=== PATIENT | male | born 1960 | race Asian ===

== ENCOUNTER 2020-06-06 13:28 | Outpatient (REF) | payer MEDICARE, MEDICAID, SELFPAY ==
[2020-06-06 15:19] LABS: Anion Gap 10 (12-20); Blood Urea Nitrogen 15 mg/dL (9-16); Carbon Dioxide 25 mmol/L (22-29); Chloride 107 mmol/L (96-108); Estimated Glomerular Filt Rate 48; Potassium 4.1 mmol/L (3.3-5.1); Sodium 138 mmol/L (135-145)
[2020-06-06 15:20] LABS: Creatinine Urine 102.91 mg/dL; Total Protein Urine Random < 7 mg/dL (<12)
== END 2020-06-06 13:29 | disposition home or self-care (01) ==
LOC: HO.LAB 13:28
PROVIDERS: PCP Internal Medicine; Visit Provider Internal Medicine Hypertension Specialist
DX: N18.30 Chronic kidney disease, stage 3 unspecified (principal)
CPT/HCPCS: 36415; 80051; 82565; 84156; 84520

== ENCOUNTER 2020-12-08 13:31 | Outpatient (REF) | payer MEDICARE, MEDICAID, SELFPAY ==
[2020-12-08 14:24] LABS: Anion Gap 11 (12-20); Blood Urea Nitrogen 13 mg/dL (9-16); Calcium 8.9 mg/dL (8.4-10.2); Carbon Dioxide 25 mmol/L (22-29); Chloride 108 mmol/L (96-108); Estimated Glomerular Filt Rate 42; Potassium 4.4 mmol/L (3.3-5.1); Sodium 140 mmol/L (135-145)
[2020-12-08 14:53] LABS: Creatinine Urine 89.54 mg/dL; Total Protein Urine Random < 7 mg/dL (<12)
== END 2020-12-08 13:32 | disposition home or self-care (01) ==
LOC: HO.LAB 13:31
PROVIDERS: PCP Internal Medicine; Visit Provider Internal Medicine Hypertension Specialist
DX: N18.31 Chronic kidney disease, stage 3a (principal)
CPT/HCPCS: 36415; 80051; 82310; 82565; 84156; 84520

== ENCOUNTER 2021-04-13 13:28 | Outpatient (REF) | payer MEDICARE, MEDICAID, SELFPAY ==
[2021-04-13 14:54] LABS: Anion Gap 10 (12-20); Blood Urea Nitrogen 13 mg/dL (9-16); Calcium 9.2 mg/dL (8.4-10.2); Carbon Dioxide 27 mmol/L (22-29); Chloride 109 mmol/L (96-108); Estimated Glomerular Filt Rate 44; Glucose Random 249 mg/dL (60-115); Potassium 4.6 mmol/L (3.3-5.1); Sodium 141 mmol/L (135-145)
== END 2021-04-13 13:29 | disposition home or self-care (01) ==
LOC: HO.LAB 13:28
PROVIDERS: PCP Internal Medicine; Visit Provider Internal Medicine Hypertension Specialist
DX: N18.31 Chronic kidney disease, stage 3a (principal)
CPT/HCPCS: 36415; 80048

== ENCOUNTER 2022-02-03 13:53 | Outpatient (REF) | payer MEDICARE, MEDICAID, SELFPAY ==
[2022-02-03 15:02] LABS: Hematocrit 40.6 % (42.0-52.0); Mean Corpuscular HGB Conc 34.5 g/dl (31.0-36.0); Mean Corpuscular Hemoglobin 31.3 pg (27.0-33.0); Mean Corpuscular Volume 90.8 fL (80.0-98.0); Mean Platelet Volume 9.7 fL (9.4-12.4); Platelet Count 186 X10*3/uL (160-400); Red Blood Count 4.47 X10*6/uL (4.60-5.80); White Blood Count 4.4 X10*3/uL (4.8-10.8)
[2022-02-03 15:32] LABS: Anion Gap 10 (12-20); Blood Urea Nitrogen 15 mg/dL (9-16); Calcium 8.9 mg/dL (8.4-10.2); Carbon Dioxide 26 mmol/L (22-29); Chloride 108 mmol/L (96-108); Estimated Glomerular Filt Rate 46; Glucose Random 155 mg/dL (60-115); Sodium 140 mmol/L (135-145)
[2022-02-03 16:42] LABS: Creatinine Urine 62.19 mg/dL; Total Protein Urine Random < 7 mg/dL (<12)
== END 2022-02-03 13:54 | disposition home or self-care (01) ==
LOC: HO.LAB 13:53
PROVIDERS: Visit Provider Internal Medicine Hypertension Specialist
DX: N18.30 Chronic kidney disease, stage 3 unspecified (principal)
CPT/HCPCS: 36415; 80048; 84156; 85027

== ENCOUNTER 2022-11-26 13:17 | Outpatient (REF) | payer MEDICARE, MEDICAID, SELFPAY ==
[2022-11-26 14:33] LABS: Alanine Aminotransferase 22 U/L (0-40); Albumin Level 4.2 g/dL (3.5-5.0); Alkaline Phosphatase 65 U/L (39-117); Anion Gap 14 (12-20); Aspartate Amino Transferase 19 U/L (5-37); Bilirubin Total 0.4 mg/dL (0.0-1.0); Blood Urea Nitrogen 14 mg/dL (9-16); Calcium 9.2 mg/dL (8.4-10.2); Carbon Dioxide 24 mmol/L (22-29); Chloride 111 mmol/L (96-108); Estimated Glomerular Filt Rate 45; Sodium 145 mmol/L (135-145); Total Protein 7.6 g/dL (6.5-8.0)
[2022-11-26 14:45] LABS: Glucose Random 43 mg/dL (60-115)
== END 2022-11-26 13:18 | disposition home or self-care (01) ==
LOC: HO.LAB 13:17
PROVIDERS: PCP Internal Medicine; Visit Provider Internal Medicine Hypertension Specialist
DX: N18.31 Chronic kidney disease, stage 3a (principal)
CPT/HCPCS: 36415; 80053

== ENCOUNTER 2023-09-02 13:49 | Outpatient (REF) | payer MEDICARE, MEDICAID, SELFPAY ==
[2023-09-02 14:06] LABS: MANUAL DIFF FLAG NO
[2023-09-02 14:39] LABS: Basophils Percent Auto 0.5 % (0-2); Eosinophils Absolute Auto 0.1 X10*3/uL (0.0-0.4); Eosinophils Percent Auto 1.1 % (0-4); Hemoglobin 13.6 g/dl (14.0-18.0); Imm Gran Abs Auto 0.02 X10*3/uL (0.00-0.03); Imm Gran Pct Auto 0.3 % (0.0-0.4); Lymphocytes Absolute Auto 3.3 X10*3/uL (1.2-4.9); Lymphocytes Percent Auto 53.3 % (20-40); Mean Corpuscular Hemoglobin 30.9 pg (27.0-33.0); Mean Corpuscular Volume 90.9 fL (80.0-98.0); Mean Platelet Volume 9.7 fL (9.4-12.4); Monocytes Absolute Auto 0.4 X10*3/uL (0.1-1.2); Monocytes Percent Auto 6.5 % (2-11); Neutrophils Absolute Auto 2.3 x10*3/uL (2.0-8.3); Neutrophils Percent Auto 38.3 % (45-73); Platelet Count 184 X10*3/uL (160-400); Red Cell Distribution Width 14.9 % (11.0-16.0); White Blood Count 6.1 X10*3/uL (4.8-10.8)
[2023-09-02 15:02] LABS: Albumin Level 4.1 g/dL (3.5-5.0); Anion Gap 10 (12-20); Blood Urea Nitrogen 12 mg/dL (9-16); Calcium 9.3 mg/dL (8.4-10.2); Carbon Dioxide 25 mmol/L (22-29); Chloride 112 mmol/L (96-108); Estimated Glomerular Filt Rate 43; Magnesium 2.4 mg/dL (1.6-2.6); Phosphorus 3.3 mg/dL (2.7-4.5); Potassium 3.8 mmol/L (3.3-5.1); Sodium 143 mmol/L (135-145)
[2023-09-02 15:03] LABS: Parathyroid Hormone Intact 61.4 pg/mL (8.7-77.1)
[2023-09-02 15:18] LABS: Vitamin D 25-OH Total 26.6 ng/mL (>30)
[2023-09-02 17:33] LABS: Appearance Urine Clear; Color Urine Yellow; Glucose Urine UA Negative (Negative); Leukocyte Esterase Urine Negative (Negative); Nitrite Urine Negative (Negative); Specific Gravity - Urine <= 1.005 (1.005-1.025); Urine Blood Negative (Negative); Urine Ketones Negative (Negative); Urine Protein Negative (Neg-Trace)
[2023-09-02 18:11] LABS: Creatinine Urine 51.73 mg/dL; Microalbumin Urine < 5.0 mg/L; Total Protein Urine Random < 7 mg/dL (<12)
== END 2023-09-02 13:50 | disposition home or self-care (01) ==
LOC: HO.LAB 13:49
PROVIDERS: Visit Provider Internal Medicine Nephrology
DX: E10.22 Type 1 diabetes mellitus with diabetic chronic kidney disease (principal); N18.32 Chronic kidney disease, stage 3b; N25.0 Renal osteodystrophy
CPT/HCPCS: 36415; 80051; 81003; 82040; 82306; 82310; 82565; 82570; 83735; 83970; 84100; 84156; 84520; 85025

== ENCOUNTER 2024-11-01 15:17 | Outpatient (REF) | payer MEDICARE, MEDICAID, SELFPAY ==
--- OUTSIDE RECORDS SUMMARY | 2024-10-31 07:10 | XMS_ITS | Encounter Summary ---
Author Organization [facility] Address [address] [facility] [address] [place] [phone] Phone Care Team Providers Care Inspection And Testing Supervisor Name Role Phone Millie Kan MD Primary Care Provider + Encounter Details Date Type Department Care Team (Latest Contact Info) Description 10/31/2024 7:10 AM EDT - 10/31/2024 11:59 PM EDT Hospital Encounter [facility] Specimen Processing [address] [place] [address] Pao Kan MD [address] [place] [address] Discharge Disposition: Home or Self Care Social History Tobacco Use Types Packs/Day Years Used Date Smoking Tobacco: Never Assessed Education Answer Date Recorded Are you interested in more education? Not on donna e 06/25/2022 Are you concerned about learning? Not on file 06/25/2022 No 06/25/2022 No 06/25/2022 Digital Access Answer Date Recorded No 07/21/2022 No 07/21/2022 No 07/21/2022 Reliable internet access at home? Not on file 07/21/2022 Device with a working camera? Not on file Sex and Gender Information Value Date Recorded Sex Assigned at Not on file Legal Sex Male 9:45 PM EDT Gender Identity Not on file Sexual Orientation Not on file documented as of this encounter Plan of Treatment Not on file documented as of this encounter Procedures Procedure Name Priority Date/Time Associated Diagnosis Comments PT-INR Routine 10/31/2024 7:12 AM EDT Atrial fib/flutter, transient documented in this encounter Results * (ABNORMAL) PT-INR (10/31/2024 7:12 AM EDT) PT 29.4(H) 10.2 - 12.9 sec [facility] INR 2.4(H) 0.9 - 1.1 [facility] Comment:Therapeutic range fo r oral Vitamin K antagonists: 2.0-3.5 10/31/2024 7:12 AM EDT 10/31/2024 8:28 AM EDT us Pao Bennie Kan MD LAB BLOOD ORDERABLES Fi nal Result [facility] [address] [place] [address] documented in this encounter Visit Diagnoses Diagnosis Atrial fib/flutter, transient documented in this encounter Care Teams Inspection And Testing Supervisor Relationship Specialty Start Date End Date Millie Kan MD [address] [place] [address] PCP - General Internal Medicine 08/13/20 documented as of this encounter Additional Source Comments The information contained in this document represents components of the legal health record. It is not the complete legal health record.[facility]
--- OUTSIDE RECORDS SUMMARY | 2024-11-01 14:45 | XMS_ITS | Encounter Summary ---
Author Organization [facility] Address [address] [facility] [address] [place] [address] Phone Care Team Providers Care Hydro Generation Supervisor Name Role Phone Millie Kan MD Primary Care Provider [phone] Encounter Details Date Type Department Care Team (Latest Contact Info) Description 11/01/2024 2:45 PM EDT [facility] [address] [place] [address] Nathaniel Crooks MD [address] [facility] [address] [place] [address] Stage 3b chronic kidney disease (HCC) (Primary Dx); Renal osteodystrophy Social History Tobacco Use Types Packs/Day Years Used Date Smoking Tobacco: Never Smokeless Tobacco: Never Alcohol Use Standard Drinks/Week Comments Yes 0 (1 standard drink = 0.6 oz pure alcohol) Alcoholic Drinks/day: Occasional social drink Sex and Gender Information Value Date Recorded Sex Assigned at Not on file Legal Sex Male 4:48 PM EST Gender Identity Not on file Sexual Orientation Not on file documented as of this encounter Last Filed Vital Signs Vital Sign Reading Time Taken Comments Blood Pressure 100/62 11/01/2024 2:45 PM EDT Pulse 57 11/01/2024 2:45 PM EDT Temperature - - Respiratory Rate - - Oxygen Saturation 97% 11/01/2024 2:45 PM EDT Inhaled Oxygen Concentration - - Weight 79.2 kg (174 lb 9.6 oz) 11/01/2024 2:45 P M EDT Height - - Body Mass Index 26.16 12/15/2020 2:55 PM EDT documented in this encounter Patient Instructions * Patient Instructions* Nathaniel Crooks MD - 11/01/2024 2:45 PM EDT No NSAIDS - Do not take non-steroidal anti-inflammatory medications (NSAIDS) such as Ibuprofen (Advil, Motrin, etc), Naproxen (Aleve, etc), Celecoxib (Celebrex) or Ketoprofen. These common arthritis medications can cause permanent kidney damage or worsen your kidney damage. For mild occasional pain, Acetaminophen (Tylenol, etc) is safe for your kidneys. Sodium and Your CKD Diet: How to Spice Up Your Cooking What is sodium? Sodium is a mineral found naturally in foods and is the major part of table salt. What are the effects of eating too much sodium? When your kidneys are not healthy, extra sodium and fluid build up in your body. This can cause swollen ankles, puffiness, a rise in blood pressure, shortness of breath, and/or fluid around your heart and lungs. See the following table for suggestions on how to reduce sodium in your diet. LIMIT THE [AMOUNT OF... FOOD TO LIMIT BECAUSE OF THEIR HIGH SODIUM CONTENT ACCEPTABLE SUBSTITUTES SALT & SALT SEASONINGS Table salt Seasoning salt Garlic salt Onion salt Celery salt Lemon pepper Lite salt Meat tenderizer Bouillon cubes Flavor enhancers Fresh garlic, fresh onion, garlic powder, onion powder, black [pepper, lemon juice, low-sodium/salt-free seasoning blends, vinegar SALTY FOODS Barbecue sauce Steak sauce Soy sauce Teriaky sauce Oyster sauce Salted Snacks such as Crackers Potato chips [place] chips Pretzels Tortilla chips Nuts Popcorn Screven seeds Homemade or low- sodium sauces and salad dressings; Vinegar, dry mustard, unsalted popcorn, pretzels, tortilla or corn chips Cured Foods Ham Salt pork Dey Sauerkraut Pickles, pickle relish Lox & Bhagat Olives Fresh beef, veal, pork, poultry, fish, eggs [place] [employer] Hot Dogs Cold cuts, deli meats Pastrami Sausage Corned beef Spam Low-salt deli meats PROCESSED FOODS Buttermilk Cheese Canned: Soups Tomato products Vegetable juices Canned vegetables Convenience Foods such as: TV Dinners Canned raviolis [place] Macaroni & Cheese Spaghetti Frozen prepared foods Fast foods Natural cheese (1-2 oz Per week) Homemade or jose alfredo,1- sodium soups, canned food without added salt Homemade casseroles without added salt, made with fresh or raw vegetables, fresh meat, antonia, pasta, or unsalted canned vegetables Some salt or sodium is needed for body water balance. But when your kidneys lose the ability to control sodium and water balance, you may experience the following: thirst fluid gain high blood pressure discomfort during dialysis By using less sodium in your diet, you can control these problems. Hints to keep your sodium intake down Cook with herbs and spices instead of salt. (Refer to Spice Up Your Cooking section for further suggestions.) Read food labels and choose those foods low in sodium. Avoid salt substitutes and specialty low-sodium foods made with salt substitutes because they are high in potassium. When eating out, ask for meat or fish without salt. Ask for gravy or sauce on the side; these may contain large amounts of salt and should be used in small amounts . Limit use of canned, processed and frozen foods. Some information about reading labels Understanding the terms: Sodium Free - Only a trivial amount of sodium per serving. Very Low Sodium - 35 mg or less per serving. Low Sodium - 140 mg or less per serving. Reduced Sodium - Foods in which the level of sodium is reduced by 25%. Light or Lite in Sodium - Foods in which the sodium is reduced by at least 50% . Simple rule of thumb : If salt is listed in the first five ingredients, the item is probably too high in sodium to use. All food labels now have milligrams (mg) of sodium listed. Follow these steps when reading the sodiwn information on the label: 1. Know how much sodium you are allowed each day. Remember that there are 1000 milligrams (mg) in 1gram. For [id number], if your diet prescription is 2 grams of sodium , your limit is 2000 milligrams per day. Consider the sodium value or other food to be eaten during the day. 2. Look at the package label. Check the serving size. Nutrition values are expressed per deisy g. How does this compare to your total daily allowance? If the sodium level is 500 mg or more per serving, the item is not a good choice. 3. Compare labels of similar products. Select the lowest sodium level for the same serving size. How to Spice Up Your Cooking Giving up salt does not mean giving up flavor. Learn to season your food with herbs and spices. Be creative and experiment for a new and exciting flavor. What kinds of spices and herbs should I use instead of salt to add flavor? Try the following spices with the foods listed. Allspice: Use with beef, fish, beets, cabbage, canots, peas, fruit. Basil: Use with beef, pork, most vegetables. [place]: Use with beef, pork, most vegetables. [place]: Use with beef, pork, green beans, cauliflower, cabbage, beets, asparagus, and in dips and marinades. Cardamom: Use with fruit and in baked goods. [place]: Use with beef, chicken, pork, fish, green beans, carrots and in marinades. Dill: Use with beef, chicken, green beans, cabbage, carrots, peas and in dips. [place]: Use with beef, chicken, pork, green beans, cauliflower and eggplant. Marjoram: Use with beef, chicken, pork, green beans, cauliflower and eggplant. [place]: Use with chicken, pork, cauliflower, peas and in marinades. Thyme: Use with beef, chicken, pork, fish, green beans, beets and carrots. [place]: Use with chicken, pork, eggplant and in dressing. Tarragon: Use with fish, chicken, asparagus, beets, cabbage, cauliflower and in marinades. Tips for cooking with herbs and spices Purchase spices and herbs in small amounts . When they sit on the shelf for years they lose their flavor. Use no more than ?? teaspoon of dried spice (?? of fresh) per pound of meat. Add ground spices to food about 15 minutes before the end of the cooking period. Add whole spices to food at least one hour before the end of the cooking period. Combine herbs with oil or butter, set for 30 minutes to bring out their flavor, then brush on foodswhile they cook, or brush meat with oil and sprinkle herbs one hour before coolcing. Crush dried herbs before adding to foods. Can I use salt substitutes? Caution! If you are told to limit potassium in your diet, be very cautious about using salt substitutes because most of them contain some form of potassium. Check with your doctor or dietitian beforeusing and salt substitute. [place] and create your own seasoning containing those spices that you like. If you would like to become a volunteer and find out more about what's happening where you live, contact your local [facility] Affiliate. Blood pressure monitoring education: Monitor home blood pressure values after sitting for 5 minutes with back and arm support. Keep a log. Bring your log and blood pressure cuff to your next visit. documented in this encounter Plan of Treatment Upcoming Encounters Date Type Department Care Team (Late st Contact Info) Description 08/01/2025 2:30 PM EDT Office Visit [facility] [address] [place] [address] Nathaniel Crooks MD [address] [facility] [address] [place] [address] Scheduled Orders Name Type Priority Associated Diagnoses Orde r Schedule PTH, Intact Lab Routine Stage 3b chronic kidney disease (HCC) Renal osteodystrophy Expected: 11/01/2024, Expires: 12/01/2025 Renal Function Panel Lab Routine Stage 3b chronic kidney disease (HCC) Renal osteodystrophy Expected: 11/01/2024, Expires: 12/01/2025 Urinalysis with microscopic Lab Routine Stage 3b chronic kidney disease (HCC) Renal osteodystrophy Expected: 11/01/2024, Expires: 12/01/2025 Urine Albumin / Creatinine Ratio Lab Routine Stage 3b chronic kidney disease (HCC) Renal osteodystrophy Expected: 11/01/2024, Expires: 12/01/2025 Protein, Total, Random Urine w/Creatinine (Protein/Creat Ratio) Lab Routine Stage 3b chronic kidney disease (HCC) Renal osteodystrophy Expected: 11/01/2024, Expires: 12/01/2025 Vitamin D 25 Hydroxy Lab Routine Stage 3b chronic kidney disease (HCC) Renal osteodystrophy Expected: 11/01/2024, Expires: 12/01/2025 CBC Lab Routine Stage 3b chronic kidney disease (HCC) Renal osteodystrophy Expected: 11/01/2024, Expires: 12/01/2025 Phosphorus Lab Routine Stage 3b chronic kidney disease (HCC) Renal osteodystrophy Expected: 11/01/2024, Expires: 12/01/2025 Magnesium Lab Routine Stage 3b chronic kidney disease (HCC) Renal osteodystrophy Expected: 11/01/2024, Expires: 12/01/2025 Albumin Lab Routine Stage 3b chronic kidney disease (HCC) Renal osteodystrophy Expected: 11/01/2024, Expires: 12/01/2025 Calcium Lab Routine Stage 3b chronic kidney disease (HCC) Renal osteodystrophy Expected: 11/01/2024, Expires: 12/01/2025 documented as of this encounter Visit Diagnoses Diagnosis Stage 3b chronic kidney disease (HCC)- Primary Renal osteodystrophy documented in this encounter Care Teams Hydro Generation Supervisor Relationship Specialty Start Date End Date Millie Kan MD [facility] [place], [place] PCP - General 03/10/20 documented as of this encounter
[2024-11-01 15:40] LABS: MANUAL DIFF FLAG NO
[2024-11-01 16:18] LABS: Hematocrit 37.3 % (42.0-52.0); Hemoglobin 12.7 g/dl (14.0-18.0); Imm Gran Abs Auto 0.01 X10*3/uL (0.00-0.03); Imm Gran Pct Auto 0.2 % (0.0-0.4); Lymphocytes Absolute Auto 2.6 X10*3/uL (1.2-4.9); Mean Corpuscular HGB Conc 34.0 g/dl (31.0-36.0); Mean Corpuscular Hemoglobin 30.2 pg (27.0-33.0); Mean Corpuscular Volume 88.6 fL (80.0-98.0); NRBC Abs Auto 0.000 X10*3/uL (0.0-0.012); NRBC Pct Auto 0.0 /100WBC (0.0-0.2); Platelet Count 202 X10*3/uL (160-400); Red Blood Count 4.21 X10*6/uL (4.60-5.80); White Blood Count 5.2 X10*3/uL (4.8-10.8)
--- OUTSIDE RECORDS SUMMARY | 2024-11-01 16:19 | XMS_ITS | Encounter Summary ---
Author Organization [facility] Address [address] [place] [address] [place] [phone] Phone Care Team Providers Care Printing Equipment Mechanic Apprentice Name Role Phone Millie Kan MD Primary Care Provider + Encounter Details Date Type Department Care Team (Late st Contact Info) Description 06/09/2022 Transcribe Orders [facility] Specimen Processing [address] [place] [phone] Millie Kan MD [address] [place] [address] Atrial fibrillation, unspecified type (Primary Dx) Social History Tobacco Use Types Packs/Day Years Used Date Smoking Tobacco: Never Assessed Sex and Gender Information Value Date Recorded Sex Assigned at Not on file Legal Sex Male 9:45 PM EDT Gender Identity Not on file Sexual Orientation Not on file documented as of this encounter Plan of Treatment Not on file documented as of this encounter Results * (ABNORMAL) PT-INR (06/16/2022 6:10 AM EDT) PT 45.3(H) 10.2 - 12.9 sec [facility] INR 4.0(H) 0.9 - 1.1 [facility] Comment:Therapeutic range fo r oral Vitamin K antagonists: 2.0-3.5 Blood 06/16/2022 6:10 AM EDT 06/16/2022 9:21 AM EDT us Millie Kan MD LAB BLOOD ORDERABLES Fin al Result [facility] [address] [place] [address] documented in this encounter Visit Diagnoses Diagnosis Atrial fibrillation, unspecified type- Primary documented in this encounter Care Teams Printing Equipment Mechanic Apprentice Relationship Specialty Start Date End Date Millie Kan MD [address] [place] [phone] PCP - General Internal Medicine 08/13/20 documented as of this encounter Additional Source Comments The information contained in this document represents components of the legal health record. It is not the complete legal health record.[facility]
--- OUTSIDE RECORDS SUMMARY | 2024-11-01 16:19 | XMS_ITS | Clinical Summary ---
Author Organization [facility] Address [address] [place] [address] Phone Care Team Providers Care Tool Planner Name Role Phone Millie Kan MD Primary Care Provider + Encounters Date Type Department Care Team Description 10/31/2024 7:10 AM EDT - 10/31/2024 11:59 PM EDT Hospital Encounter [facility] [address] [place] [address] Pao Kan MD Discharge Disposition: Home or Self Care 10/31/2024 Transcribe Orders [facility] [address] [place] [address] Pao aKn MD 10/31/2024 Transcribe Orders [facility] [address] [place] [address] Pao Kan MD Atrial fib/flutter, transient (Primary Dx) 10/24/2024 7:51 AM EDT - 10/24/2024 11:59 PM EDT Hospital Encounter [facility] [address] [place] [address] Pao Kan MD Discharge Disposition: Home or Self Care 10/24/2024 Transcribe Orders [facility] [address] [place] [address] Pao Kan MD Atrial fib/flutter, transient (Primary Dx) 10/16/2024 8:13 AM EDT - 10/16/2024 11:59 PM EDT Hospital Encounter [facility] [address] [place] [address] Millie Kan MD Discharge Disposition: Home or Self Care 10/16/2024 Transcribe Orders [facility] [address] [place] [address] Millie Kan MD detention (current) use of anticoagulants (Primary Dx) 10/10/2024 7:32 AM EDT - 10/10/2024 11:59 PM EDT Hospital Encounter [facility] [address] [place] [address] Pao Kan MD Discharge Disposition: Home or Self Care 10/10/2024 Transcribe Orders [facility] [address] [place] [address] Pao Kan MD Atrial fib/flutter, transient (Primary Dx) 10/03/2024 6:22 AM EDT - 10/03/2024 11:59 PM EDT Hospital Encounter [facility] [address] [place] [address] Pao Kan MD Discharge Disposition: Home or Self Care 10/03/2024 Transcribe Orders [facility] [address] [place] [address] Pao Kan MD Atrial fibrillation, unspecified type (Primary Dx) 09/26/2024 6:34 AM EDT - 09/26/2024 11:59 PM EDT Hospital Encounter [facility] [address] [place] [address] Pao Kan MD Discharge Disposition: Home or Self Care 09/26/2024 Transcribe Orders [facility] [address] [place] [address] Pao Kan MD Atrial fibrillation, unspecified type (Primary Dx) 09/26/2024 Transcribe Orders [facility] Specimen Processing [address] [place] [address] Pao Kan MD Atrial fibrillation, unspecified type (Primary Dx) 09/19/2024 7:04 AM EDT - 09/19/2024 11:59 PM EDT Hospital Encounter [facility] [address] [place] [address] Pao Kan MD Discharge Disposition: Home or Self Care 09/19/2024 Transcribe Orders [facility] Specimen Processing [address] [place] [address] Pao Kan MD detention (current) use of anticoagulants (Primary Dx) 09/12/2024 6:11 AM EDT - 09/12/2024 11:59 PM EDT Hospital Encounter [facility] [address] [place] [address] Pao Kan MD Discharge Disposition: Home or Self Care 09/12/2024 Transcribe Orders [facility] Specimen Processing [address] [place] [address] Pao Kan MD joint terminal attack controller (current) use of anticoagulants (Primary Dx) 09/05/2024 7:22 AM EDT - 09/05/2024 11:59 PM EDT Hospital Encounter [facility] [address] [place] [address] Pao Kan MD Discharge Disposition: Home or Self Care 09/05/2024 Transcribe Orders [facility] Specimen Processing [address] [place] [address] Pao Kan MD Atrial fib/flutter, transient (Primary Dx) 08/29/2024 6:30 AM EDT - 08/29/2024 11:59 PM EDT Hospital Encounter [facility] [address] [place] [address] Pao Kan MD Discharge Disposition: Home or Self Care 08/29/2024 Transcribe Orders [facility] [address] [place] [address] Pao Kan MD detention (current) use of anticoagulants (Primary Dx) 08/22/2024 7:43 AM EDT - 08/22/2024 11:59 PM EDT Hospital Encounter [facility] [address] [place] [address] Pao Kan MD Discharge Disposition: Home or Self Care 08/22/2024 Transcribe Orders [facility] Specimen Processing [address] [place] [address] Pao Kan MD joint terminal attack controller (current) use of anticoagulants (Primary Dx) 08/15/2024 9:00 AM EDT - 08/15/2024 11:59 PM EDT Hospital Encounter [facility] [address] [place] [address] Brad Saleh MD Bucknor, Adjoa Agyiewa, MD Discharge Disposition: Home or Self Care 08/15/2024 Transcribe Orders [facility] Specimen Processing [address] [place] [address] Pao Kan MD Atrial fib/flutter, transient (Primary Dx) 08/08/2024 8:07 AM EDT - 08/08/2024 11:59 PM EDT Hospital Encounter [facility] [address] [place] [address] Pao Kan MD Discharge Disposition: Home or Self Care 08/08/2024 Transcribe Orders [facility] Specimen Processing [address] [place] [address] Pao Kan MD Atrial fibrillation, unspecified type (Primary Dx) 08/01/2024 11:59 AM EDT - 08/01/2024 11:59 PM EDT Hospital Encounter [facility] Specimen Processing [address] [place] [address] Pao Kan MD Discharge Disposition: Home or Self Care 08/01/2024 Transcribe Orders [facility] Specimen Processing [address] [place] [address] Pao Kan MD Atrial fib/flutter, transient (Primary Dx) from Last 3 Months Social History Tobacco Use Types Packs/Day Years [...] on file Sexual Orientation Not on file Plan of Treatment Health Maintenance Due Date Last Done Comments Adult Td,Tdap Booster 1962 DEPRESSION SCREENING 1974 SMOKING Hx and SMOKELESS TOBACCO SCREENING 1975 HEPATITIS C SCREENING 1980 HIV ONE-TIME SCREENING (18-6 5 YEARS) 1980 COLOGUARD 2007 COLONOSCOPY 2007 COLORECTAL CANCER SCREENING 2007 FIT TEST 2007 FOBT 2007 SIGMOIDOSCOPY 2007 VIRTUAL COLONOSCOPY 2007 PNEUMOCOCCAL VACCINES (50+ years) (1 of 1 - PCV) 2012 ZOSTER VACCINES (1 of 2) 2012 INFLUENZA VACCINE (#1) 2024 12/07/2019 COVID-19 VACCINE (3 - 2024-2 6 season) 2024 04/11/2020, 03/21/2020 LIPID PANEL 12/23/2027 12/22/2022, 05/07/2020 RSV VACCINE (1 - 1-dose 75+ series) 2037 HEPATITIS A VACCINES Aged Out No long er eligible based on patient's age to complete this topic HIB VACCINES Aged Out No longer eligi ble based on patient's age to complete this topic MENINGOCOCCAL VACCINES (ACWY) Aged Out No longer eligible based on patient's age to complete this topic MENINGOCOCCAL VACCINES (B) Aged Out N o longer eligible based on patient's age to complete this topic Medical Devices Not on file Procedures Procedure Name Priority Date/Time Associated Diagnosis Comments PT-INR Routine 10/31/2024 7:12 AM EDT Atrial fib/flutter, transient PT-INR Routine 10/24/2024 7:52 AM EDT Atrial fib/flutter, transient PT-INR Routine 10/16/2024 6:50 AM EDT detention (current) use of anticoagulants PT-INR Routine 10/10/2024 6:44 AM EDT Atrial fib/flutter, transient PT-INR Routine 10/03/2024 6:15 AM EDT Atrial fibrillation, unspecified type PT-INR Routine 09/26/2024 6:15 AM EDT Atrial fibrillation, unspecified type PT-INR Routine 09/19/2024 6:00 AM EDT joint terminal attack controller (current) use of anticoagulants PT-INR Routine 09/12/2024 6:00 AM EDT detention (current) use of anticoagulants PT-INR Routine 09/05/2024 7:04 AM EDT Atrial fib/flutter, transient PT-INR Routine 08/29/2024 6:25 AM EDT joint terminal attack controller (current) use of anticoagulants PT-INR Routine 08/22/2024 7:10 AM EDT joint terminal attack controller (current) use of anticoagulants PT-INR Routine 08/15/2024 8:18 AM EDT Atrial fib/flutter, transient PT-INR Routine 08/08/2024 7:00 AM EDT Atrial fibrillation, unspecified type PT-INR Routine 08/01/2024 11:13 AM EDT Atrial fib/flutter, transient LIPID PANEL Routine 12/22/2022 8:41 AM EDT Atrial fibrillation, unspecified type detention (current) use of anticoagulants Diabetes mellitus without complication from Last 3 Months or Most Recently Relevant to Health Maintenance Results * (ABNORMAL) PT-INR (10/31/2024 7:12 AM EDT) Only the most recent of14 resultswithin the time period is included. PT 29.4(H) 10.2 - 12.9 sec [facility] INR 2.4(H) 0.9 - 1.1 [facility] Comment:Therapeutic range fo r oral Vitamin K antagonists: 2.0-3.5 10/31/2024 7:12 AM EDT 10/31/2024 8:28 AM EDT us Pao Kan MD LAB BLOOD ORDERABLES Fi nal Result Performing Organization Address [facility] Co de Phone Number [address] [address] * (ABNORMAL) Lipid panel (12/22/2022 8:41 AM EDT) HDL 33 mg/dL [facility] Comment: Interpretation <40 mg/dL: Low HDL cholesterol (major risk factor for CHD) Greater than or equal to 60 mg/dL: High HDL cholesterol ( negative risk factor for CHD) HDL - cholesterol is affected by a number of factors, e.g. smoking, excerise, hormones, sex and age. CHOLESTEROL 90 0 - 240 mg/dL [facility] TRIGLYCERIDES 98 30 - 160 mg/dL [facility] LDL 37(L) 50 - 129 mg/dL [facility] Comment: LDL levels in terms of risk for coronary heart disease: <100 mg/dL: Optimal 100-129 mg/dL: Near or above optimal 130-159 mg/dL: Borderline high 160-189 mg/dL: High >190 mg/dL: Very High CARDIAC RISK RATIO 2.7(L) 3.4 - 5.0 C [facility] Blood 12/22/2022 8:41 AM EDT 12/22/2022 10:16 AM EDT us Millie Kan MD LAB BLOOD ORDERABLES Fin al Result Performing Organization Address City/[facility]/ZIP Co de Phone Number [address] [address] from Last 3 Months or Most Recently Relevant to Health Maintenance Insurance [address] [place] [address] MEDICARE PART A & B [address] [place], [place] [address]HEALTH [address] [place] [address] MEDICARE PART A & [facility] [address] [place] [address] MEDICARE PART A & B [facility] [address] [place] [address] MEDICARE PART [place] & [place] [address] [place] [address] MEDICARE PART A & B [facility] [address] [place] [address] MEDICARE PART A & B HEALTH [address] [place] [address] MEDICARE PART A & B [facility]ALTH [address] [place] [address] MEDICARE PART A & [place] [address] [place] [address] MEDICARE PART A & B [place] Care Teams Tool Planner Relationship Specialty Start Date End Date Millie Kan MD [address] [place] [address] PCP - General Internal Medicine 08/13/20 Additional Source Comments The information contained in this document represents components of the legal health record. It is not the complete legal health record.[facility]
--- OUTSIDE RECORDS SUMMARY | 2024-11-01 16:19 | XMS_ITS | Clinical Summary ---
Author Organization [facility] Address [address] [place] [address] Phone Care Team Providers Care Bakery Decorator Name Role Phone Millie aKn MD Primary Care Provider [phone] Allergies No known active allergies Medications cholecalciferol (VITAMIN D-3) 25 MCG (1000 UT) capsule Take 1 capsule by mouth 1 (one) time each day Active NovoLOG FLEXPEN 100 UNIT/ML injection 1 Active Tresiba FlexTouch 200 UNIT/ML injection 1 Active insulin glargine (Lantus) 100 UNIT/ML injection Inject 70 Units under the skin 1 (one) time each day Active Latuda 120 MG tablet 1 Active omeprazole (PriLOSEC) [address] capsule 1 Active perphenazine 16 MG tablet 1 Active rosuvastatin (CRESTOR) 5 MG tablet 1 Active topiramate (TOPAMAX) 50 MG tablet 1 Active warfarin (COUMADIN) 7.5 MG tablet 1 Active benztropine (COGENTIN) 0.5 MG tablet Take 0.5 mg by mouth 1 (one) time each day 2 Active cetirizine (ZyrTEC) 10 MG chewable tablet Chew 10 mg 1 (one) time each day Active Lurasidone HCl 120 MG tablet Take by mouth Ac tive VITAMIN D PO Take 1,000 Units by mouth Active acetaminophen (TYLENOL) 325 MG tablet Take by mouth every 6 (six) hours if needed for mild pain Active dexAMETHasone (DEXTENZA OP) Administer 30 mg into affected eye(s) Active ibuprofen (ADVIL,MOTRIN) 800 MG tablet Take 800 mg by mouth every 6 (six) hours if needed for mild pain Active Magnesium 400 MG tablet Take by mouth Active Active Problems Problem Noted Date Diagnosed Date Schizophrenia 12/02/2022 12/02/2022 Allergic rhinitis 12/02/2022 12/02/2022 Stage 3b chronic kidney disease 12/02/2022 Type 1 diabetes mellitus wit h diabetic chronic kidney disease 12/02/2022 Renal osteodystrophy 12/02/2022 Anxiety 12/12/2020 Chronic kidney disease stage 3 12/12/2020 Deep venous thrombosis 12/12/2020 Depressive disorder 12/12/2020 Diabetes mellitus 12/12/2020 Hyperlipidemia 12/12/2020 Encounters Date Type Department Care Team Description 11/01/2024 2:45 PM EDT Office Visit [facility] [address] [place], [place] [address] Nathaniel Crooks MD Stage 3b chronic kidney disease (HCC) (Primary Dx); Renal osteodystrophy from Last 3 Months Immunizations Immunization Administration Dates Next Due Influenza, Unspecified 12/17/2020,2019,11/08/2018,01/26/2018,11/29,12/24/2015 Pfizer SARS-COV-2 07/06/2021,12/26/2020,04/11/19 21,03/21/2020 Pneumococcal Polysaccharide 01/18/2013 SARS-CoV-2, Unspecified 12/29/2021 Td, Unspecified 09/22/2015 Family History Relation Status Comments Father Unknown Mother Unknown Social History Tobacco Use Types Packs/Day Years [...] on file Sexual Orientation Not on file Last Filed Vital Signs Vital Sign Reading Time Taken Comments Blood Pressure 100/62 11/01/2024 2:45 PM EDT Pulse 57 11/01/2024 2:45 PM EDT Temperature - - Respiratory Rate - - Oxygen Saturation 97% 11/01/2024 2:45 PM EDT Inhaled Oxygen Concentration - - Weight 79.2 kg (174 lb 9.6 oz) 11/01/2024 2:45 P M EDT Height 174 cm (5' 8.5 ) 12/15/2020 2:55 PM EDT Body Mass Index 26.16 12/15/2020 2:55 PM EDT Plan of Treatment Upcoming Encounters Date Type Department Care Team (Late st Contact Info) Description 08/01/2025 2:30 PM EDT Office Visit [facility] [address] [place] [address] Nathaniel Crooks MD [address] [facility] [address] [place] [address] Health Maintenance Due Date Last Done Comments Colorectal Cancer Screening: Annual FOBT 2011 Colorectal Cancer Screening: Colonoscopy 2011 Colorectal Cancer Screening: Sigmoidoscopy 2011 Pneumococcal Vaccine: 50+ Years (2 of 2 - PCV) 01/18/2014 01/18/2013 Diabetes: Hemoglobin A1C 03/31/2020 Diabetes: Ophthalmology Exam 03/31/2020 Diabetes: Pedal Pulse Checked 03/31/2020 Diabetes: Sensory Foot Exam 03/31/2020 Diabetes: Visual Foot Exam 03/31/2020 Influenza Vaccine (#1) 2024 , 12/07/2019, 11/08/2018, Additional history exists Pneumococcal Vaccine: Peds (0 to 5 Years) and At-Risk Patients (6 to 49 Years) Discontinued 01/18/2013 Hepatitis B Vaccine Aged Out No longe r eligible based on patient's age to complete this topic Insurance Medicare Medicaid [place] Medicaid [place] Care Teams Bakery Decorator Relationship Specialty Start Date End Date Millie Kan MD [address] [place], [place] PCP - General 03/10/20
--- OUTSIDE RECORDS SUMMARY | 2024-11-01 16:19 | XMS_ITS | Encounter Summary ---
Author Organization [facility] Address [address] [place] [address] [place] [phone] Phone Care Team Providers Care Ceo And Founder Name Role Phone Millie Kan MD Primary Care Provider + Encounter Details Date Type Department Care Team (Late st Contact Info) Description 05/26/2023 Transcribe Orders [facility] Processing [address] [place] [address] Millie Kan MD [address] [place], [place] [phone] Social History Tobacco Use Types Packs/Day Years [...] on file documented as of this encounter Visit Diagnoses Not on filedocumented in this encounter Care Teams Ceo And Founder Relationship Specialty Start Date End Date Millie Kan MD [address] [place] [address] PCP - General Internal Medicine 08/13/20 documented as of this encounter Additional Source Comments The information contained in this document represents components of the legal health record. It is not the complete legal health record.[facility]
--- OUTSIDE RECORDS SUMMARY | 2024-11-01 16:19 | XMS_ITS | Encounter Summary ---
Author Organization [facility] Address [address] [place] [address] [place] [phone] Phone Care Team Providers Care Quality Control Director Name Role Phone Millie Kan MD Primary Care Provider + Encounter Details Date Type Department Care Team (Late st Contact Info) Description 07/15/2021 Transcribe Orders [facility] Laboratory [address] [place] [address] Millie Kan MD [address] [place] [address] Atrial fibrillation, unspecified type (Primary Dx) Social [...] of this encounter Results * (ABNORMAL) PT-INR (07/15/2021 5:59 AM EDT) PT 22.2(H) 10.2 - 12.9 sec [facility] INR 1.9(H) 0.9 - 1.1 [facility] Comment:Therapeutic range fo r oral Vitamin K antagonists: 2.0-3.5 Blood 07/15/2021 5:59 AM EDT 07/15/2021 7:05 AM EDT us Millie Kan MD LAB BLOOD ORDERABLES Fin al Result [facility] [address] [place] [address] documented in this encounter Visit Diagnoses Diagnosis Atrial fibrillation, unspecified type- Primary documented in this encounter Care Teams Quality Control Director Relationship Specialty Start Date End Date Millie Kan MD [address] [place] [address] PCP - General Internal Medicine 08/13/20 documented as of this encounter Additional Source Comments The information contained in this document represents components of the legal health record. It is not the complete legal health record.[facility]
--- OUTSIDE RECORDS SUMMARY | 2024-11-01 16:19 | XMS_ITS | Encounter Summary ---
Author Organization [facility] Address [address] [place] [address] [place] [address] Phone Care Team Providers Care Executive Assistant To General Counsel Name Role Phone Millie Kan MD Primary Care Provider + Encounter Details Date Type Department Care Team (Late st Contact Info) Description 10/31/2024 Transcribe Orders [facility] Specimen Processing [address] [place] [address] Pao Kan MD [address] [place] [address] Social History Tobacco Use Types Packs/Day Years [...] on filedocumented in this encounter Care Teams Executive Assistant To General Counsel Relationship Specialty Start Date End Date Millie Kan MD [address] [place] [address] PCP - General Internal Medicine 08/13/20 documented as of this encounter Additional Source Comments The information contained in this document represents components of the legal health record. It is not the complete legal health record.[facility]
--- OUTSIDE RECORDS SUMMARY | 2024-11-01 16:19 | XMS_ITS | Encounter Summary ---
Author Organization [facility] Address [address] [facility] [address] [place] [phone] Phone Care Team Providers Care Instant Powder Supervisor Name Role Phone Millie Kan MD Primary Care Provider + Encounter Details Date Type Department Care Team (Latest Contact Info) Description 10/31/2024 Transcribe Orders [facility] Specimen Processing [address] [place] [address] Pao Kan MD [address] [place] [address] Atrial fib/flutter, transient (Primary Dx) Social History Tobacco Use Types [...] of this encounter Results * (ABNORMAL) PT-INR (10/31/2024 7:12 AM EDT) PT 29.4(H) 10.2 - 12.9 sec [facility] INR 2.4(H) 0.9 - 1.1 [facility] Comment:Therapeutic range fo r oral Vitamin K antagonists: 2.0-3.5 10/31/2024 7:12 AM EDT 10/31/2024 8:28 AM EDT us Pao Bennie Kan MD LAB BLOOD ORDERABLES Fi nal Result [facility] [address] [place] [address] documented in this encounter Visit Diagnoses Diagnosis Atrial fib/flutter, transient- Primary documented in this encounter Care Teams Instant Powder Supervisor Relationship Specialty Start Date End Date Millie Kan MD [address] [place] [address] PCP - General Internal Medicine 08/13/20 documented as of this encounter Additional Source Comments The information contained in this document represents components of the legal health record. It is not the complete legal health record.[facility]
[2024-11-01 16:50] LABS: Albumin Level 4.1 g/dL (3.5-5.0); Anion Gap 10 (12-20); Blood Urea Nitrogen 13 mg/dL (9-16); Calcium 8.5 mg/dL (8.4-10.2); Carbon Dioxide 23 mmol/L (22-29); Chloride 112 mmol/L (96-108); Estimated Glomerular Filt Rate 46; Magnesium 2.2 mg/dL (1.6-2.6); Potassium 3.7 mmol/L (3.3-5.1); Sodium 141 mmol/L (135-145)
[2024-11-01 16:53] LABS: Parathyroid Hormone Intact 61.4 pg/mL (8.7-77.1)
[2024-11-01 18:49] LABS: Total Protein Urine Random < 7 mg/dL (<12)
== END 2024-11-01 15:18 | disposition home or self-care (01) ==
LOC: HO.LAB 15:17
PROVIDERS: Visit Provider Internal Medicine Nephrology
DX: N18.32 Chronic kidney disease, stage 3b (principal); N25.0 Renal osteodystrophy
CPT/HCPCS: 36415; 80051; 82040; 82043; 82306; 82310; 82565; 82570; 83735; 83970; 84100; 84156; 84520; 85025